=== PATIENT | male | born 1990 | race African-American/Black ===

== ENCOUNTER → 2020-12-10 16:04 | Outpatient (CLI) | payer OTHER, MEDICAID, SELFPAY ==
--- NOTE | 2020-12-10 16:14 | DI.MRI.S_ITS ---
PROCEDURE: MR LUMBAR SPINE WO CON INDICATIONS: LOW BACK PAIN TECHNIQUE: Noncontrast sagittal T1 spin echo and T2 fast echo, sagittal STIR, axial T1 and T2 fast spin echo through the lumbar spine. In cases with scoliosis, additional coronal T2 fast spin echo may be performed. COMPARISON: None. FINDINGS: Image quality: Excellent. Alignment and Curvature: There is normal bony alignment. Bone Marrow: Marrow is of normal overall signal. No acute vertebral body compression fractures. Spinal Cord: Conus medullaris terminates at the L1 level. Visualized cord demonstrates normal signal and size. Paraspinous Soft Tissues: No paravertebral masses. T12-L1: Normal appearance. L1-L2: Normal appearance. L2-L3: Normal appearance. L3-L4: Unremarkable. L4-L5: Minimal disc bulge. No canal stenosis or foraminal stenosis. L5-S1: Posterior annulus tear associated with mild broad-based posterior disc protrusion. Disc material abuts but does not displace the right S1 nerve root in the right lateral recess. No foraminal stenosis. IMPRESSION: At L5-S1, there is a posterior annulus tear associated with mild broad-based posterior disc protrusion. The right S1 nerve root is abutted in the right lateral recess. Dictated by: Demetrio Dent M.D. on 12/10/2020 at 16:53 Approved by: Demetrio Dent M.D. on 12/10/2020 at 16:56
== END ==
PROVIDERS: Referring Provider Naturopath; Visit Provider Naturopath
DX: M51.27 Other intervertebral disc displacement, lumbosacral region (principal)
CPT/HCPCS: 72148